=== PATIENT | female | born 1965 | race Caucasian/White ===

== ENCOUNTER → 2017-05-12 | Outpatient (CLI) | payer BC ==
[~2017-05-12] MED LIST: Aspir-Low81 MG PO; BLACK COHOSH; CEFU250 PO; CILO100 PO; CITA20 PO; CLOP75 PO; DICL25ER PO; HYDCHL12.5; HYDCHL25 PO; LORA1 PO; LOSA50 PO; METCAR500 PO; OLME20
== END ==
LOC: LAB 15:36
DX: L02.91 Cutaneous abscess, unspecified (principal)
CPT/HCPCS: 87070; 87075; 87077; 87147; 87186; 87205; 87529

== ENCOUNTER → 2018-12-08 | Outpatient (CLI) | payer BC ==
[2018-12-12 15:14] LABS: HPV 16 Negative (Negative); HPV 18 Negative (Negative); HPV OTHER HR TYPES Negative (Negative)
== END | disposition home or self-care (01) ==
LOC: LAB 16:23 → LAB SHORT 16:23
PROVIDERS: Obstetrics & Gynecology
DX: Z01.419 Encounter for gynecological examination (general) (routine) without abnormal findings (principal)
CPT/HCPCS: 87624; G0123